=== PATIENT | male | born 1950 | race Caucasian/White ===

== ENCOUNTER 2020-07-07 10:03 | Outpatient (CLI) | payer MEDICARE | END 2020-07-07 23:59 | disposition home or self-care (01) | LOC: ROC 10:03 | PROVIDERS: ATTEND Radiology Radiation Oncology | DX: C61 Malignant neoplasm of prostate (principal) | CPT/HCPCS: G0463 ==

== ENCOUNTER 2020-08-19 07:09 | Outpatient (CLI) | payer MEDICARE ==
[2020-08-19] MEDS ORDERED: LIDOCAINE/PF 1%, 30ML ONE (07:30)
[2020-08-19] MEDS ORDERED: MIDAZOLAM 1 MG/ML, 5ML ONE (07:30)
[2020-08-19] MEDS ORDERED: FENTANYL PF 100 MCG/2ML ONE (07:30)
== END 2020-08-19 23:59 | disposition home or self-care (01) ==
LOC: ROC 07:09
PROVIDERS: ATTEND Radiology Radiation Oncology
DX: C61 Malignant neoplasm of prostate (principal); I10 Essential (primary) hypertension
CPT/HCPCS: 55876; 76942; 77332; 99156; A4648; J2250; J3010

== ENCOUNTER 2020-12-05 08:06 | Outpatient (CLI) | payer MEDICARE | END 2020-12-05 23:59 | disposition home or self-care (01) | LOC: ROC 08:06 | PROVIDERS: ATTEND Radiology Radiation Oncology | DX: Z08 Encounter for follow-up examination after completed treatment for malignant neoplasm (principal); Z85.46 Personal history of malignant neoplasm of prostate | CPT/HCPCS: G0463 ==